=== PATIENT | female | born 1960 | race Caucasian/White ===

== ENCOUNTER 2020-03-20 12:03 | Emergency (ER) | payer SELFPAY ==
[~2020-03-20] VITALS: Ht 162.6 cm; Wt 68.0 kg
--- NOTE | 2020-03-20 12:03 | NUR ---
PT BIBA VIA W/C BLS AND PLACED IN BED 4.
[2020-03-20 12:09] VITALS: BP 166/84
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
[2020-03-20] MEDS ORDERED: LIDOCAINE MPF 1% 10 MG/ML VIAL INJ ONE (12:45)
[2020-03-20] MEDS ORDERED: BUPIVACAINE-MPF 0.5% 30 ML VIAL INJ ONE (12:45)
--- NOTE | 2020-03-20 13:40 | NUR ---
Dr. Dunn at bedside for laceration repair.
--- NOTE | 2020-03-20 13:51 | NUR ---
PT RESTING IN BED, SIDE RAIL X1
--- NOTE | 2020-03-20 14:17 | NUR ---
X-RAY AT BEDSIDE
--- NOTE | 2020-03-20 14:33 | NUR ---
APPLIED NONADHERENT DRESSONG TO LEFT THIRD AND FOURTH DIGITS WIHTOUT ANY ISSUES. APPLIED FINGER SPLINT TI RIGHT THRID DIGIT
[2020-03-20 14:43] VITALS: BP 152/80
--- NOTE | 2020-03-20 14:43 | NUR ---
Patient discharged with v/s stable. Written and verbal after care instructions given and explained. Patient alert, oriented and verbalized understanding of instructions. Ambulatory with steady gait. All questions addressed prior to discharge. ID band removed. Patient advised to follow up with PMD. Rx of KEFLEX,NORCO given. Patient educated on indication of medication including possible reaction and side effects. Opportunity to ask questions provided and answered.
== END 2020-03-20 14:43 | disposition home or self-care (01) ==
LOC: MED 12:03
DX: S61.212A Laceration without foreign body of right middle finger without damage to nail, initial encounter (principal); S61.217A Laceration without foreign body of left little finger without damage to nail, initial encounter; W26.8XXA Contact with other sharp object(s), not elsewhere classified, initial encounter; Y93.89 Activity, other specified; Y92.89 Other specified places as the place of occurrence of the external cause; Y99.8 Other external cause status
CPT/HCPCS: 12004; 73140; 99284; J2001; J3490; Q0092